=== PATIENT | female | born 2000 | race African-American/Black ===

== ENCOUNTER 2023-12-22 14:51 | Emergency (ER) | payer OTHER ==
[2023-12-22 14:58] VITALS: BP 126/73; PULSE 94; RESP 20; TEMP 99.2; BMI 38.0
[2023-12-22 15:52] LABS: THROAT:GRP A STREP NOT DETECTED (NOTDETECTED)
== END 2023-12-22 16:06 | disposition home or self-care (01) ==
LOC: JERFT 14:51
DX: R50.9 Fever, unspecified (principal); J02.9 Acute pharyngitis, unspecified; R19.7 Diarrhea, unspecified; M79.10 Myalgia, unspecified site; R05.9 Cough, unspecified; B34.9 Viral infection, unspecified; J10.1 Influenza due to other identified influenza virus with other respiratory manifestations; Z20.822 Contact with and (suspected) exposure to COVID-19
CPT/HCPCS: 0241U-QW; 87651; 99283-25